=== PATIENT | male | born 1965 | race Caucasian/White ===

== ENCOUNTER 2017-06-21 14:19 | Inpatient (IN) | payer MEDICARE, MEDICAID ==
[~2017-06-21] VITALS: Ht 172.7 cm; Wt 77.4 kg
[2017-06-21 18:46] LABS: BASOPHILS 0.3 % (0-2); EOSINOPHILS 7.6 % (0-7); HEMATOCRIT 32.7 % (36.0-48.0); HEMOGLOBIN 10.8 g/dL (12-16); IMMATURE GRANULOCYTES 0.4 % (0-5); LYMPHOCYTES 14.4 % (15-50); MCH 26.6 pg (26.0-34.0); MCV 80.5 fL (80.0-100.0); MEAN PLATELET VOLUME 9.4 fL (7.4-10.4); MONOCYTES 7.7 % (2-11); NEUTROPHILS 69.6 % (40-80); PLATELET COUNT 215 10x3/uL (130-400); RBC 4.06 10x6/uL (4.00-5.40); RDW 14.3 % (11.5-14.5); WBC 10.6 10x3/uL (4.8-10.8)
[2017-06-21 18:57] LABS: ANION GAP 18.1 mmol/L (8-16); CALCIUM 9.4 mg/dL (8.5-10.1); CARBON DIOXIDE 18.3 mmol/L (21.0-32.0); POTASSIUM - SERUM 4.4 mmol/L (3.5-5.1)
[2017-06-21 20:00] VITALS: BP 193/88
[2017-06-21] MEDS ORDERED: PERCOCET 10/3251 TA1 PO (21:16)
[2017-06-21] MEDS ORDERED: PERCOCET 5-3251 TAB PO (21:17)
[2017-06-21] MEDS ORDERED: PAMELOR 25 MG C25 MG PO (21:19)
[2017-06-21] MEDS ORDERED: VITAMIN D250000 UNIT PO (21:22)
[2017-06-21] MEDS ORDERED: BAYER CHEWABLE81 MG PO (21:23)
[2017-06-21] MEDS ORDERED: PRAVACHOL40 MG PO (21:24)
[2017-06-21] MEDS ORDERED: NORVASC10 MG PO (21:25)
[2017-06-21] MEDS ORDERED: K-TAB10 MEQ PO (21:26)
[2017-06-21] MEDS ORDERED: COREG25 MG PO (21:27)
[2017-06-21] MEDS ORDERED: FUROSEMIDE40 MG PO (21:27)
[2017-06-21] MEDS ORDERED: LEVEMIR FLEXTOUCH 10 (21:29)
[2017-06-21] MEDS ORDERED: HUMALOG KWIKPEN (21:30)
[2017-06-21] MEDS ORDERED: MUPIROCIN22 GM TOPICAL (21:31)
[2017-06-21] MEDS ORDERED: NYSTATIN1 PWD (21:32)
[2017-06-22] VITALS: BP 184/78
[2017-06-22 04:00] VITALS: BP 194/87
[2017-06-22 05:46] LABS: BASOPHILS 0.4 % (0-2); EOSINOPHILS 8.1 % (0-7); IMMATURE GRANULOCYTES 0.5 % (0-5); LYMPHOCYTES 12.3 % (15-50); MCH 25.9 pg (26.0-34.0); MCHC 32.4 g/dL (31.0-37.0); MCV 80.2 fL (80.0-100.0); MEAN PLATELET VOLUME 9.6 fL (7.4-10.4); MONOCYTES 6.2 % (2-11); NEUTROPHILS 72.5 % (40-80); PLATELET COUNT 238 10x3/uL (130-400); RBC 4.24 10x6/uL (4.20-6.10); RDW 14.3 % (11.5-14.5); WBC 10.7 10x3/uL (4.8-10.8)
[2017-06-22 06:40] LABS: ALBUMIN 2.1 g/dL (3.4-5.0); ANION GAP 18.1 mmol/L (8-16); BILIRUBIN - TOTAL 0.3 mg/dL (0.2-1.3); CALCIUM 9.1 mg/dL (8.5-10.1); CARBON DIOXIDE 20.1 mmol/L (21.0-32.0); POTASSIUM - SERUM 4.2 mmol/L (3.5-5.1); PROTEIN - SERUM 5.9 g/dL (6.4-8.2)
[2017-06-22 06:47] LABS: CREATININE - SERUM 4.4 mg/dL (0.6-1.3)
[2017-06-22 07:15] LABS: COMPLEMENT C4 22.3 mg/dL (17.4-52.2)
[2017-06-22 07:38] VITALS: BP 185/80
[2017-06-22 08:06] LABS: ERYTHROCYTE SEDIMENTATION RATE 51 mm/hr (0-20)
[2017-06-22 11:14] VITALS: BP 184/84
[2017-06-22 15:23] VITALS: BP 182/72
[2017-06-22 20:00] VITALS: BP 180/87
[2017-06-23 04:00] VITALS: BP 188/83
[2017-06-23 05:40] LABS: BASOPHILS 0.4 % (0-2); EOSINOPHILS 7.6 % (0-7); HEMATOCRIT 32.3 % (42.0-54.0); HEMOGLOBIN 10.6 g/dL (13.5-17.5); IMMATURE GRANULOCYTES 0.5 % (0-5); LYMPHOCYTES 16.6 % (15-50); MCHC 32.8 g/dL (31.0-37.0); MCV 79.2 fL (80.0-100.0); MEAN PLATELET VOLUME 9.4 fL (7.4-10.4); MONOCYTES 4.6 % (2-11); NEUTROPHILS 70.3 % (40-80); PLATELET COUNT 214 10x3/uL (130-400); RBC 4.08 10x6/uL (4.20-6.10); RDW 14.4 % (11.5-14.5)
[2017-06-23 06:08] LABS: ALBUMIN 1.9 g/dL (3.4-5.0); BILIRUBIN - TOTAL 0.36 mg/dL (0.2-1.3); CALCIUM 8.5 mg/dL (8.5-10.1); CARBON DIOXIDE 18.7 mmol/L (21.0-32.0); PROTEIN - SERUM 6.2 g/dL (6.4-8.2)
[2017-06-23 06:09] LABS: ANION GAP 18.6 mmol/L (8-16); POTASSIUM - SERUM 3.3 mmol/L (3.5-5.1)
[2017-06-23 09:26] VITALS: BP 166/63
[2017-06-23 10:23] LABS: CREATININE - URINE 28.8 mg/dL (30-125); PRO/CRE RATIO URINE 6.7 mg/g; PROTEIN - URINE 194.1 mg/dL (0.0-11.9)
[2017-06-23 10:39] LABS: APPEARANCE CLEAR (CLEAR); BILIRUBIN NEGATIVE (NEGATIVE); COLOR YELLOW (YELLOW); GLUCOSE 50 mg/dL (NEGATIVE); KETONE NEGATIVE (NEGATIVE); NITRITE NEGATIVE (NEGATIVE); PROTEIN 2+ mg/dL (NEGATIVE); SPECIFIC GRAVITY 1.015 (1.005-1.020); UROBILINOGEN NORMAL (NORMAL)
[2017-06-23 10:47] LABS: BACTERIA FEW /hpf (NONE SEEN); EPITHELIAL CELLS OCC /hpf (0-5); GRANULAR CAST OCC /lpf (NONE SEEN); RED CELLS - URINE OCC /hpf (0-5); WHITE CELLS - URINE 0-5 /hpf (0-5)
[2017-06-23 12:03] VITALS: BP 173/67
[2017-06-23 13:18] LABS: SPE - A/G RATIO 0.7 (0.7-1.7); SPE - ALBUMIN 2.4 g/dL (2.9-4.4); SPE - ALPHA-1 GLOBULIN 0.3 g/dL (0.0-0.4); SPE - ALPHA-2 GLOBULIN 0.9 g/dL (0.4-1.0); SPE - BETA GLOBULIN 0.9 g/dL (0.7-1.3); SPE - GAMMA GLOBULIN 1.1 g/dL (0.4-1.8); SPE - M-SPIKE Not Observed g/dL (Not Observed); SPE - TOTAL PROTEIN 5.7 g/dL (6.0-8.5)
[2017-06-23 13:22] VITALS: Ht 172.7 cm; Wt 77.4 kg
[2017-06-23 15:57] VITALS: BP 181/80
[2017-06-23 16:14] LABS: ANA REFLEX - DIRECT Negative (Negative)
[2017-06-23 20:00] VITALS: BP 178/74
[2017-06-23 22:30] VITALS: BP 169/69
[2017-06-24] VITALS: BP 156/63; BP 169/69
[2017-06-24 04:00] VITALS: BP 183/66
[2017-06-24 05:41] LABS: BASOPHILS 0.3 % (0-2); EOSINOPHILS 6.8 % (0-7); HEMATOCRIT 31.1 % (42.0-54.0); HEMOGLOBIN 10.3 g/dL (13.5-17.5); IMMATURE GRANULOCYTES 0.5 % (0-5); LYMPHOCYTES 16.6 % (15-50); MCH 25.9 pg (26.0-34.0); MCHC 33.1 g/dL (31.0-37.0); MCV 78.1 fL (80.0-100.0); MEAN PLATELET VOLUME 9.6 fL (7.4-10.4); MONOCYTES 5.2 % (2-11); NEUTROPHILS 70.6 % (40-80); PLATELET COUNT 214 10x3/uL (130-400); RBC 3.98 10x6/uL (4.20-6.10); RDW 14.4 % (11.5-14.5); WBC 11.9 10x3/uL (4.8-10.8)
[2017-06-24 06:14] LABS: ALBUMIN 1.8 g/dL (3.4-5.0); BILIRUBIN - TOTAL 0.3 mg/dL (0.2-1.3); CREATININE - SERUM 3.9 mg/dL (0.6-1.3); URIC ACID 7.7 mg/dL (2.6-7.2)
[2017-06-24 06:17] LABS: ANION GAP 11.3 mmol/L (8-16); CARBON DIOXIDE 26.6 mmol/L (21.0-32.0); POTASSIUM - SERUM 2.9 mmol/L (3.5-5.1)
[2017-06-24 08:07] VITALS: BP 154/70
[2017-06-24 12:13] VITALS: BP 160/68
[2017-06-24] MEDS ORDERED: SODIUM BICARBO650 MG PO (15:23)
[2017-06-24 17:09] LABS: ANGIOTENSIN CONVERTING ENZYME 44 U/L (14-82)
[2017-06-26 09:09] LABS: ANTI-GLOMERULAR BASMENT MEMBRN 4 units (0-20)
[2017-06-26 16:12] LABS: UPE RAND - ALBUMIN 63.5 % (()); UPE RAND - ALPHA 1 GLOBULIN 4.3 % (()); UPE RAND - ALPHA 2 GLOBULIN 5.8 % (()); UPE RAND - BETA GLOBULIN 11.7 % (()); UPE RAND - GAMMA GLOBULIN 14.7 % (())
[2017-06-26 17:11] LABS: ANCA - ANTIMYELOPEROXIDASE <9.0 U/mL (0.0-9.0); ANCA - ANTIPROTEINASE 3 <3.5 U/mL (0.0-3.5); ANCA - ATYPICAL <1:20 titer (Neg:<1:20); ANCA - CYTOPLASMIC <1:20 titer (Neg:<1:20); ANCA - PERINUCLEAR <1:20 titer (Neg:<1:20)
== END 2017-06-24 17:03 | disposition home health service (06) | DRG 683 ==
LOC: D.M2 14:19 → EDSEX 14:19 → D.M2 06-24 17:03
PROVIDERS: Family Medicine; Internal Medicine Nephrology
DX: N17.9 Acute kidney failure, unspecified (principal); E87.2 Acidosis; E11.22 Type 2 diabetes mellitus with diabetic chronic kidney disease; I12.9 Hypertensive chronic kidney disease with stage 1 through stage 4 chronic kidney disease, or unspecified chronic kidney disease; N18.9 Chronic kidney disease, unspecified; D63.1 Anemia in chronic kidney disease; K21.9 Gastro-esophageal reflux disease without esophagitis; E11.21 Type 2 diabetes mellitus with diabetic nephropathy; E87.5 Hyperkalemia; E83.52 Hypercalcemia; E87.6 Hypokalemia; G89.4 Chronic pain syndrome; Z89.511 Acquired absence of right leg below knee; Z72.0 Tobacco use

== ENCOUNTER 2017-09-23 00:14 | Inpatient (IN) | payer MEDICARE, MEDICAID ==
[~2017-09-23] VITALS: Ht 172.7 cm; Wt 80.0 kg
[~2017-09-23 00:14] MED LIST: BAYER CHEWABLE81 MG PO; COREG25 MG PO; FUROSEMIDE40 MG PO; HUMALOG KWIKPEN; K-TAB10 MEQ PO; LEVEMIR FLEXTOUCH 10; MUPIROCIN22 GM TOPICAL; NORVASC10 MG PO; NYSTATIN1 PWD; PAMELOR 25 MG C25 MG PO; PERCOCET 10/3251 TA1 PO; PERCOCET 5-3251 TAB PO; PRAVACHOL40 MG PO; SODIUM BICARBO650 MG PO; VITAMIN D250000 UNIT PO
[2017-09-23 03:43] VITALS: BP 153/73; BMI 29.3
[2017-09-23 05:07] VITALS: BP 153/73
[2017-09-23 08:45] VITALS: BP 114/61
[2017-09-23 09:40] VITALS: BMI 29.2
[2017-09-23 11:05] VITALS: Ht 172.7 cm; Wt 80.0 kg
[2017-09-23 11:10] LABS: BASOPHILS 0.1 % (0-2); EOSINOPHILS 2.2 % (0-7); HEMATOCRIT 27.6 % (42.0-54.0); HEMOGLOBIN 8.6 g/dL (13.5-17.5); IMMATURE GRANULOCYTES 0.8 % (0-5); LYMPHOCYTES 6.9 % (15-50); MCH 23.6 pg (26.0-34.0); MCHC 31.2 g/dL (31.0-37.0); MCV 75.6 fL (80.0-100.0); MEAN PLATELET VOLUME 9.5 fL (7.4-10.4); MONOCYTES 6.8 % (2-11); NEUTROPHILS 83.2 % (40-80); PLATELET COUNT 300 10x3/uL (130-400); RBC 3.65 10x6/uL (4.20-6.10); RDW 15.8 % (11.5-14.5); WBC 13.4 10x3/uL (4.8-10.8)
[2017-09-23 11:16] LABS: APTT 33.2 SECONDS (22.8-39.4); INR 1.34 (0.85-1.17); PROTIME 16.2 SECONDS (11.6-15.0)
[2017-09-23 11:20] LABS: ALBUMIN 2.3 g/dL (3.4-5.0); ANION GAP 19.8 mmol/L (8-16); BILIRUBIN - TOTAL 0.43 mg/dL (0.2-1.3); CALCIUM 8.2 mg/dL (8.5-10.1); CARBON DIOXIDE 16.3 mmol/L (21.0-32.0); CREATININE - SERUM 6.4 mg/dL (0.6-1.3); MAGNESIUM - SERUM 2.6 mg/dL (1.8-2.4); POTASSIUM - SERUM 5.1 mmol/L (3.5-5.1); PROTEIN - SERUM 7.1 g/dL (6.4-8.2)
[2017-09-23 12:10] VITALS: BP 154/77
[2017-09-23 21:43] VITALS: BP 189/84
[2017-09-24 03:03] VITALS: BP 149/75
[2017-09-24 06:01] VITALS: BP 134/67
[2017-09-24 08:09] LABS: BASOPHILS 0.2 % (0-2); EOSINOPHILS 2.3 % (0-7); HEMATOCRIT 29.1 % (42.0-54.0); HEMOGLOBIN 9.2 g/dL (13.5-17.5); IMMATURE GRANULOCYTES 0.4 % (0-5); LYMPHOCYTES 6.8 % (15-50); MCH 23.5 pg (26.0-34.0); MCHC 31.6 g/dL (31.0-37.0); MCV 74.4 fL (80.0-100.0); MEAN PLATELET VOLUME 9.9 fL (7.4-10.4); MONOCYTES 8.5 % (2-11); NEUTROPHILS 81.8 % (40-80); PLATELET COUNT 296 10x3/uL (130-400); RBC 3.91 10x6/uL (4.20-6.10); RDW 15.6 % (11.5-14.5); WBC 15.6 10x3/uL (4.8-10.8)
[2017-09-24 08:13] VITALS: BP 178/73
[2017-09-24 08:47] LABS: ANION GAP 14.4 mmol/L (8-16); CREATININE - SERUM 4.1 mg/dL (0.6-1.3); POTASSIUM - SERUM 3.4 mmol/L (3.5-5.1)
[2017-09-24 11:53] VITALS: BP 152/78
[2017-09-24 15:37] VITALS: BP 158/79
[2017-09-24 20:30] VITALS: BP 130/59
[2017-09-25 00:30] VITALS: BP 156/71
[2017-09-25 04:30] VITALS: BP 116/59
[2017-09-25 05:53] LABS: ANION GAP 15.7 mmol/L (8-16); CALCIUM 7.7 mg/dL (8.5-10.1); CARBON DIOXIDE 24.7 mmol/L (21.0-32.0); CREATININE - SERUM 4.6 mg/dL (0.6-1.3); POTASSIUM - SERUM 3.4 mmol/L (3.5-5.1)
[2017-09-25 06:21] LABS: HEMATOCRIT 27.4 % (42.0-54.0); HEMOGLOBIN 8.6 g/dL (13.5-17.5); MCH 23.4 pg (26.0-34.0); MCHC 31.4 g/dL (31.0-37.0); MCV 74.7 fL (80.0-100.0); MEAN PLATELET VOLUME 10.4 fL (7.4-10.4); PLATELET COUNT 267 10x3/uL (130-400); RBC 3.67 10x6/uL (4.20-6.10); RDW 15.5 % (11.5-14.5); WBC 21.1 10x3/uL (4.8-10.8)
[2017-09-25 07:23] LABS: EOSINOPHILS 1 % (0-7); LYMPHOCYTES 12 % (15-50); MONOCYTES 6 % (2-11); NEUTROPHILS 78 % (40-80); PLATELET ESTIMATE NORMAL
[2017-09-25 09:13] VITALS: BP 156/61
[2017-09-25 15:42] VITALS: BP 160/62
[2017-09-26 00:02] VITALS: BP 146/65
[2017-09-26 05:58] LABS: BASOPHILS 0.1 % (0-2); HEMATOCRIT 26.9 % (42.0-54.0); HEMOGLOBIN 8.3 g/dL (13.5-17.5); IMMATURE GRANULOCYTES 0.6 % (0-5); LYMPHOCYTES 7.4 % (15-50); MCH 23.1 pg (26.0-34.0); MCHC 30.9 g/dL (31.0-37.0); MCV 74.9 fL (80.0-100.0); MEAN PLATELET VOLUME 10.1 fL (7.4-10.4); MONOCYTES 7.8 % (2-11); NEUTROPHILS 83.1 % (40-80); PLATELET COUNT 240 10x3/uL (130-400); RBC 3.59 10x6/uL (4.20-6.10); RDW 15.5 % (11.5-14.5); WBC 23.4 10x3/uL (4.8-10.8)
[2017-09-26 06:07] VITALS: BP 164/66
[2017-09-26 06:27] LABS: ANION GAP 14.1 mmol/L (8-16); CALCIUM 7.8 mg/dL (8.5-10.1); CARBON DIOXIDE 24.3 mmol/L (21.0-32.0); CREATININE - SERUM 4.6 mg/dL (0.6-1.3); POTASSIUM - SERUM 3.4 mmol/L (3.5-5.1); VANCOMYCIN - RANDOM 10.9 ug/mL (10.0-20.0)
[2017-09-26 07:08] LABS: % SATURATION 6 % (15-55); IRON 11 ug/dl (35-150); TOTAL IRON BIND CAPACITY 167 ug/dl (260-445); UNSAT IRON BIND CAPACITY 156 ug/dl (150-375)
[2017-09-26 08:33] LABS: APPEARANCE CLEAR (CLEAR); COLOR YELLOW (YELLOW)
[2017-09-26 08:34] LABS: BACTERIA FEW /hpf (NONE SEEN); BILIRUBIN NEGATIVE (NEGATIVE); EPITHELIAL CELLS 0-5 /hpf (0-5); GLUCOSE 100 mg/dL (NEGATIVE); HYALINE CAST RARE /lpf (NONE SEEN); KETONE SMALL mg/dL (NEGATIVE); MUCUS <1+ /lpf (NONE SEEN); NITRITE NEGATIVE (NEGATIVE); PROTEIN 3+ mg/dL (NEGATIVE); RED CELLS - URINE 0-5 /hpf (0-5); WHITE CELLS - URINE 0-5 /hpf (0-5)
[2017-09-26 15:09] VITALS: BP 164/60
[2017-09-26 17:13] LABS: HEPATITIS C ANTIBODY 0.2 (0.0-0.9)
[2017-09-26 19:11] LABS: HEP B CORE AB TOTAL Negative (Negative)
[2017-09-26 20:52] VITALS: BP 169/69
[2017-09-27 01:42] VITALS: BP 143/67
[2017-09-27 04:14] LABS: BASOPHILS 0.1 % (0-2); EOSINOPHILS 0.5 % (0-7); HEMATOCRIT 25.8 % (42.0-54.0); HEMOGLOBIN 8.1 g/dL (13.5-17.5); IMMATURE GRANULOCYTES 0.6 % (0-5); LYMPHOCYTES 5.5 % (15-50); MCH 23.5 pg (26.0-34.0); MCHC 31.4 g/dL (31.0-37.0); MCV 74.8 fL (80.0-100.0); MEAN PLATELET VOLUME 9.9 fL (7.4-10.4); MONOCYTES 7.4 % (2-11); NEUTROPHILS 85.9 % (40-80); PLATELET COUNT 219 10x3/uL (130-400); RBC 3.45 10x6/uL (4.20-6.10); RDW 15.2 % (11.5-14.5); WBC 25.9 10x3/uL (4.8-10.8)
[2017-09-27 04:21] LABS: ANION GAP 11.1 mmol/L (8-16); CALCIUM 7.3 mg/dL (8.5-10.1); CARBON DIOXIDE 29.4 mmol/L (21.0-32.0); POTASSIUM - SERUM 3.5 mmol/L (3.5-5.1)
[2017-09-27 06:13] VITALS: BP 137/66
[2017-09-27 08:17] VITALS: BP 142/72
[2017-09-27 10:58] VITALS: BP 148/77
[2017-09-27 16:12] VITALS: BP 142/69
[2017-09-27 20:25] VITALS: BP 157/63
== END 2017-09-27 21:26 | disposition home or self-care (01) | DRG 682 ==
LOC: D.M2 00:14
PROVIDERS: Internal Medicine Nephrology
PROC: 02HV33Z Insertion of Infusion Device into Superior Vena Cava, Percutaneous Approach (ICD-10-PCS; principal; 2017-09-23)
PROC: B548ZZA Ultrasonography of Superior Vena Cava, Guidance (ICD-10-PCS; 2017-09-23)
PROC: 5A1D70Z Performance of Urinary Filtration, Intermittent, Less than 6 Hours Per Day (ICD-10-PCS; 2017-09-23)
DX: I12.0 Hypertensive chronic kidney disease with stage 5 chronic kidney disease or end stage renal disease (principal); N18.6 End stage renal disease; N17.9 Acute kidney failure, unspecified; E87.2 Acidosis; F17.203 Nicotine dependence unspecified, with withdrawal; E11.52 Type 2 diabetes mellitus with diabetic peripheral angiopathy with gangrene; I70.268 Atherosclerosis of native arteries of extremities with gangrene, other extremity; E11.22 Type 2 diabetes mellitus with diabetic chronic kidney disease; N25.0 Renal osteodystrophy; E83.52 Hypercalcemia; D63.1 Anemia in chronic kidney disease; E87.5 Hyperkalemia; I25.10 Atherosclerotic heart disease of native coronary artery without angina pectoris; Z95.1 Presence of aortocoronary bypass graft; D72.829 Elevated white blood cell count, unspecified; Z91.19 Patient's noncompliance with other medical treatment and regimen; Z89.611 Acquired absence of right leg above knee